=== PATIENT | male | born 1985 | race Caucasian/White ===

== ENCOUNTER 2017-07-04 08:24 | Emergency (ER) | payer MEDICAID ==
[~2017-07-04] VITALS: Ht 182.9 cm; Wt 116.0 kg
[~2017-07-04 08:24] MED LIST: HYDR1TAB PO; IBUP-1984 PO; NO HOME MEDS; PRED10TA14 PO; PRED20TA PO
[2017-07-04 08:45] VITALS: BP 139/118
[2017-07-04] MEDS ORDERED: indomethacin 25mg capsule PO STA (09:53)
[2017-07-04] MEDS ORDERED: COLC1TAB2 PO (10:27)
[2017-07-04] MEDS ORDERED: HYDR-3965 PO (10:27)
[2017-07-04] MEDS ORDERED: PRED50TA PO (10:27)
== END 2017-07-04 10:34 | disposition home or self-care (01) ==
LOC: ER 08:24
DX: M25.572 Pain in left ankle and joints of left foot (principal); M79.89 Other specified soft tissue disorders; Z79.899 Other long term (current) drug therapy; Z88.0 Allergy status to penicillin
CPT/HCPCS: 36415; 73610; 73630; 84550; 99285

== ENCOUNTER 2020-02-26 10:11 | Emergency (ER) | payer MEDICAID ==
[~2020-02-26] VITALS: Ht 182.9 cm; Wt 96.8 kg
[~2020-02-26 10:11] MED LIST changes: +COLC1TAB2 PO; +PRED50TA PO
[2020-02-26] MEDS ORDERED: ketorolac trometh inj. 60 MG/2 ML VIAL IM ONE (10:55)
[2020-02-26 12:22] VITALS: BP 150/109
== END 2020-02-26 12:34 | disposition home or self-care (01) ==
LOC: ER 10:12
DX: M79.601 Pain in right arm (principal); M54.10 Radiculopathy, site unspecified; Z72.89 Other problems related to lifestyle; Z88.0 Allergy status to penicillin; Z79.899 Other long term (current) drug therapy
CPT/HCPCS: 93005; 99283

== ENCOUNTER 2021-09-28 20:47 | Emergency (ER) | payer MEDICAID ==
[~2021-09-28] VITALS: Ht 182.9 cm; Wt 106.8 kg
[2021-09-29 00:03] VITALS: BP 130/98
== END 2021-09-29 00:10 | disposition home or self-care (01) ==
LOC: ER 20:48
DX: M79.605 Pain in left leg (principal); M79.89 Other specified soft tissue disorders; E11.9 Type 2 diabetes mellitus without complications; Z88.1 Allergy status to other antibiotic agents; Z79.899 Other long term (current) drug therapy
CPT/HCPCS: 99281